=== PATIENT | male | born 1955 | race Caucasian/White ===

== ENCOUNTER 2017-01-06 14:39 | Emergency (ER) | payer OTHER ==
[~2017-01-06] VITALS: Ht 177.8 cm; Wt 99.8 kg
[2017-01-06 14:39] VITALS: BP 145/78
[2017-01-06] MEDS ORDERED: AZOR5TAB2 PO (14:46)
[2017-01-06] MEDS ORDERED: HYDR-3713 PO (15:36)
--- NOTE | 2017-01-06 15:57 | REP ---
Clinical: Trauma. Technique: AP and lateral views of the right tibia / fibula. Findings: There is a comminuted minimally displaced fracture of the distal fibular shaft. Age-related degenerative changes at the knee and ankle joint noted. No subcutaneous emphysema or radiodense foreign body. Impression: Comminuted minimally displaced fracture of the distal fibular shaft. Signed by Paul Ochoa MD 01/06/2017 03:48 P
== END 2017-01-06 16:29 | disposition home or self-care (01) ==
LOC: M ED 15:10
DX: S82.451A Displaced comminuted fracture of shaft of right fibula, initial encounter for closed fracture (principal); W01.0XXA Fall on same level from slipping, tripping and stumbling without subsequent striking against object, initial encounter; Y92.828 Other wilderness area as the place of occurrence of the external cause; Y93.01 Activity, walking, marching and hiking; Y99.8 Other external cause status; Z79.899 Other long term (current) drug therapy

== ENCOUNTER 2017-11-10 18:50 | Emergency (ER) | payer OTHER ==
[2017-11-10] MEDS: CLINDAMYCIN 600 MG in APPROPRIATE DILUENT 1 EA IV (20:14)
[2017-11-10 20:22] LABS: BASO # 0.1 10^3/uL (0.0-0.2); BASO % 0.4 % (0.0-1.0); EOS % 0.3 % (0.0-3.0); HEMOGLOBIN 14.8 g/dl (14.0-18.0); IMMATURE GRANULOCYTE % 0.5 % (0-3.0); LYMPH # 1.4 10^3/uL (1.5-4.5); LYMPH % 11.2 % (24.0-44.0); MEAN CORPUSCULAR HEMOGLOBIN 30.5 pg (27.0-33.0); MEAN CORPUSCULAR HGB CONC 35.2 g/dl (32.0-36.5); MEAN CORPUSCULAR VOLUME 86.6 fl (80.0-96.0); MONO # 0.9 10^3/uL (0.0-0.8); MONO % 7.1 % (0.0-5.0); NEUTROPHILS % 80.5 % (36.0-66.0); PLATELET COUNT, AUTOMATED 185 10^3/uL (150-450); RED BLOOD COUNT 4.85 10^6/uL (4.30-6.10); RED CELL DISTRIBUTION WIDTH 13.2 % (11.5-14.5); WHITE BLOOD COUNT 12.4 10^3/uL (4.0-10.0)
[2017-11-10 21:14] LABS: C REACTIVE PROTEIN QUANTITATIV 9.51 MG/DL (0.00-0.30)
== END 2017-11-10 20:49 | disposition home or self-care (01) ==
LOC: M ED 18:50
DX: L03.115 Cellulitis of right lower limb (principal); I10 Essential (primary) hypertension; Z79.899 Other long term (current) drug therapy
CPT/HCPCS: 86140

== ENCOUNTER 2019-09-21 12:45 | Emergency (ER) | payer OTHER ==
[~2019-09-21] VITALS: Ht 180.3 cm; Wt 109.9 kg
[~2019-09-21 12:45] MED LIST: ALLO100T PO; AZOR5TAB2 PO; CLIN150C14 PO; FEBU40TA4 PO; HYDR-3713 PO; SILD50TA2 PO
--- NOTE | 2019-09-21 14:15 | REP ---
RIGHT FOREARM: Two views. HISTORY: Injury in a fall. No comparison images. Findings: There is a comminuted transversely oriented fracture through the distal ulnar diaphysis as described in the wrist series. There is associated soft-tissue swelling. Osteoarthritic changes are seen at the wrist. There is also osteoarthritis at the elbow articulation. There is a large exostosis versus post-traumatic deformity associated with the proximal radius which is old and chronic. There is adjacent soft tissue calcification. There is also medial and lateral epicondylar spurring. Olecranon process spurring is noted. No other acute bony abnormality. IMPRESSION: Slightly displaced comminuted transverse fracture of the distal ulnar diaphysis. Old post-traumatic deformity versus large exostosis proximal radius. Osteoarthritis and olecranon and epicondylar tendon insertion site spurring. No other acute fracture. Electronically Signed by Valente Daigle MD 09/21/2019 03:21 P
--- NOTE | 2019-09-21 14:18 | REP ---
Right wrist four views. History: Injury in a fall. Findings: Four views of the right wrist demonstrate a comminuted transversely oriented fracture of the distal ulnar diaphysis with slight volar and radial displacement of the distal fragment. There is associated soft-tissue swelling. There is osteoarthritis at the wrist. No other fracture is seen. Impression: Distal ulnar diaphyseal fracture slightly displaced with comminution. 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 Electronically Signed by Valente Daigle MD 09/21/2019 03:21 P
[2019-09-21] MEDS ORDERED: IBUPROFEN 800 MG TAB PO ONE (14:45)
--- NOTE | 2019-09-21 16:11 | REP ---
Lumbar spine five views: There are no comparisons. Vertebral body heights are normal. There are no vertebral body compression deformities. There is bilateral spondylolysis. There is grade 1 spondylolisthesis of L5 on S1. There is advanced L5 S1 degenerative disc disease. There is degenerative disc disease at L1-2 with large bridging anterior osteophytes. There is mild degenerative disc disease throughout the remainder of the lumbar spine. The facet articulations are unremarkable. The sacroiliac articulations are unremarkable. The pedicles are unremarkable. 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 Advanced L5 S1 degenerative disc disease. No vertebral body compression deformities. No other listhesis. Moderate degenerative disc disease throughout the remainder of the lumbar spine. Facet osteoarthritis. Electronically Signed by Ryne Lomas MD 09/21/2019 04:03 P
[2019-09-21] MEDS ORDERED: CYCL10TA PO (16:40)
[2019-09-21 17:03] VITALS: BP 138/90
== END 2019-09-21 17:04 | disposition home or self-care (01) ==
LOC: M ED 12:45
DX: S52.611A Displaced fracture of right ulna styloid process, initial encounter for closed fracture (principal); S39.012A Strain of muscle, fascia and tendon of lower back, initial encounter; W00.0XXA Fall on same level due to ice and snow, initial encounter; Y92.018 Other place in single-family (private) house as the place of occurrence of the external cause; Y93.29 Activity, other involving ice and snow; Y99.9 Unspecified external cause status; M43.06 Spondylolysis, lumbar region; M51.37 Other intervertebral disc degeneration, lumbosacral region; M19.031 Primary osteoarthritis, right wrist; Z79.899 Other long term (current) drug therapy

== ENCOUNTER → 2022-10-15 | Outpatient (CLI) | payer OTHER ==
[~2022-10-15] MED LIST changes: +AMLO-602 PO; -AZOR5TAB2 PO; -CLIN150C14 PO; +CLIN150C17 PO; +CYCL-707 PO
== END ==
LOC: M SLEEP HO 11:00
PROVIDERS: ATTEND Internal Medicine Cardiovascular Disease
DX: R06.83 Snoring (principal)